=== PATIENT | male | born 1945 | race Caucasian/White ===

== ENCOUNTER → 2024-12-10 | Outpatient (CLI) | payer MEDICARE | END | disposition home or self-care (01) | LOC: RESCLI 09:57 | PROVIDERS: ATTEND Student in an Organized Health Care Education/Training Program | DX: I48.91 Unspecified atrial fibrillation (principal); M10.9 Gout, unspecified; E78.5 Hyperlipidemia, unspecified; K21.9 Gastro-esophageal reflux disease without esophagitis; E53.8 Deficiency of other specified B group vitamins; R60.0 Localized edema; G62.9 Polyneuropathy, unspecified; J30.9 Allergic rhinitis, unspecified; I25.10 Atherosclerotic heart disease of native coronary artery without angina pectoris; K59.00 Constipation, unspecified; Z79.899 Other long term (current) drug therapy; Z88.8 Allergy status to other drugs, medicaments and biological substances; Z98.890 Other specified postprocedural states ==